=== PATIENT | male | born 2005 | race Caucasian/White ===

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

== ENCOUNTER 2025-04-04 20:17 | Emergency (ER) | payer BC ==
[~2025-04-04] VITALS: Ht 185.4 cm; Wt 60.9 kg
[~2025-04-04 20:17] MED LIST changes: +IBUP-2766 PO; -IBUP100O20 PO
[2025-04-04 20:31] VITALS: TEMP 98.3
--- NOTE | 2025-04-04 20:47 | Physician Documentation ---
History of Present Illness Chief Complaint: Flank Pain Stated Complaint: BACK/ABD PAIN Time Seen by MD: 20:44 Primary Medical Doctor: [facility] HPI This is a 19-year-old gentleman who presents for evaluation of back pain that began several hours prior to arrival without any obvious trigger, trauma provocation while he was watching a TV show. No particular palliating or aggravating factors. If the pain persisted and developed, it wrapped around ventricular his right lower quadrant. No particular palliating or aggravating factors were elicited with the patient. Did not attempt to treat it. This never happened in the past. He does reports some dysuria without any hematuria. Denies any chance of STDs. No trauma. No red flags of back pain such as urinary incontinence, fecal incontinence, saddle paresthesias. No drug use. No concern for tobacco or alcohol use. Medication Reconciliation Allergies: Coded Allergies: amoxicillin trihydrate (Verified Allergy, Unknown, 04/04/25) potassium clavulanate (Verified Allergy, Unknown, 04/04/25) Scheduled Ibuprofen 100MG/5ML Susp* (Motrin 100 MG/5ML Susp.*), 12.5 ML PO Q6H Miscellaneous Medications Home Med List (No Home Medications), (Reported) Past Medical History Past Medical History: No Pertinent History Past Surgical History: no surgical history Alcohol Use: None Drug Use: none Lives with: Mother, Father Lives In: Home Review of Systems ROS 10 point review of systems was performed and unless noted above in HPI is neg ative for acute process/complaint. Physical Exam Vital Signs: Temperature: 98.3, Source: Temporal, Heart Rate: 108, Respiratory Rate: 15, BP: 135/77, Pulse Oximetry: 98, Weight: 60.900 Physical Exam GENERAL: Awake, alert, oriented, GCS 15, no apparent distress, non-toxic appearing, answers questions, follows commands appropriately. Examined in triage, accompanied by mother HEENT: Atraumatic, normocephalic, pupils equal, extraocular muscles intact, sclerae anicteric, mucus membranes moist, oropharynx is clear, no stridor. NECK: supple, full active range of motion, trachea midline, no thyromegaly, no lymphadenopathy, no JVD. CARDIOVASCULAR: regular rate/rhythm, no murmurs/gallops/rubs, Pulses are 2+ in all extremities and symmetric. Capillary refill less than 2 seconds. PULMONARY: Nonlabored, good air movement ,no respiratory distress, speaking in full sentences, clear to auscultation bilaterally, no wheezing, no ronchi, no rales, no accessory muscle use. GASTROINTESTINAL: Soft, right lower quadrant tenderness to palpation reproducing chief complaint,, non-distended, normal active bowel sounds, no organomegaly, no pulsatile masses, no CVA tenderness. NEUROLOGIC: Lucid with normal mental status. Normal facial symmetry. Moves all extremities symmetrically and with purpose. No truncal ataxia. Speech is fluid without evidence of dysarthria or aphasia, no focal deficits appreciated. MUSCULOSKELETAL: There is full range of motion of all extremities. There is no joint pain or joint swelling or joint erythema. There is no muscle pain or tenderness or swelling. EXTREMITIES: warm, well-perfused, no cyanosis, no clubbing, no edema, no acute deformities. Skin: warm, dry, no rashes or lesions, no jaundice, no petechiae orpurpura. No ecchymosis. PSYCHIATRIC: Normal affect, normal insight, normal concentration. Focused exam: [] Progress Results/Orders Results/Orders Orders - CHIN PAGE DO Urinalysis, Cult If Indicated (04/04/25 20:34) Cbc/Diff (04/04/25 20:34) BMP (04/04/25 20:34) Lipase (04/04/25 20:34) CMP (04/04/25 20:34) Vital Signs 04/04/25 20:31 Temp 98.3 Pulse 108 Resp 15 B/P (MAP) 135/77 Pulse Ox 98 Laboratory Tests Test 04/04/25 20:37 Urine Comment Medical Decision Making Findings Facility Status: ED Holds, [facility] process The plan was discussed with the patient, who demonstrates clear understanding of the plan and is in agreement with the plan unless otherwise noted in the chart. All questions have been answered, all concerns were addressed unless otherwise documented. I was available throughout their ED stay for frequent reassessment and questions. Differential Diagnoses (considered and possible or likely): [Differential diagnosis considered includes acute appendicitis, acute cholecystitis, pancreatitis, gastritis, PUD, diverticulitis, mesenteric ischemia, abdominal aortic aneurysm, bowel obstruction, enteritis, colitis, fecal impaction, volvulus, IBS, inflammatory bowel disease, renal colic, specific food intolerance, peritonitis, perforated viscous, malignancy, UTI, abscess, and abdominal pain NOS. History, physical exam, and workup exclude many of the more serious causes listed above. ] ??Differential Diagnoses (considered and unlikely, not requiring evaluation currently): [No evidence of trauma] MDM Data Please see HPI for the following: Independent Historians and external Records Review. Historian: [Patient] Independent Historians: ?[Mother, record review] Medication Management: [Reviewed medication list] Social History and determinants: [Reviewed] Please see the body of the note for the following: Any independent interpretations of ECG, imaging studies. All vitals signs/haemodynamics, ordered tests were independently reviewed and interpreted by myself. Nursing triage complaint and vitals reviewed, additional nursing notes were reviewed as available and I agree unless otherwise noted or documented in contradiction in the chart Vital Signs: Independently reviewed Labs: Independently interpreted Imaging: Independently interpreted Old Medical Records: Independently reviewed, see HPI for relevant summary and information Pulse Oximetry: [100%] interpreted as [normal on room air] by me [Double End Tenoner Operator: [Regular Rate, Regular rhythm, no ectopy, NSR] reviewed and interpreted by me] Additionally notably showing: [Hemodynamics reviewed. The patient initially tac hycardic, that had improved and resolved with fluids. No evidence of hypotension respiratory distress. CBC normal. Metabolic panel notable for slightly elevated glucose, likely dietary arrange. Lipase is normal. UA nondiagnostic for UTI. Advanced imaging was obtained to evaluate for potential appendicitis. On my independent review and interpretation there is no free air, appendix appears to be normal. The radiology official read confirms that there is no acute abnormality.] Tests considered but not ordered include: [Ultrasound has been considerably does not appear to be necessary] Social Determinants of Health Impact: Patient was evaluated in [facility], or [facility] [place] healthcare due to below par ratio of patient to medical providers. [] Comorbid Conditions Impacting Present Evaluation and Care/Treatment: [None] Management Discussions with other Healthcare Providers: [None] Treatment and Disposition Medication Management (Given or considered): [Fluids and pain management]. See EMR for details Consideration for Hospitalization/Escalation/Deescalation of Care: Admission for observation has been considered, [however the patient is able to tolerate p.o., their symptoms are controlled, they are able to rely on oral medications, and their chief complaint/diagnosis can be managed on outpatient basis.] ?ED Course:?[The gentleman did experience syncope during blood draw. Most likely vasovagal event. I do not believe he requires a workup for it. He recovered completely. No seizure-like activity. No altered mental status. No clinical deterioration. No explanation for this gentleman's back pain radiating to the front. Clinically not consistent or concerning for dissection. He has not no risk factors. No surgical intra-abdominal process.] ?Shared decision making:?[Patient is hemodynamically stable for discharge home with follow with their primary care provider. [ ] Specific and cautious return precautions provided and discussed with full understanding. Any incidental findings were also discussed and follow up recommendations given. [] All questions answered. Patient/family were able to verbalize back return precautions. Patient/family agree to plan. Copies of imaging and laboratory studies were provided.] Code status:?FULL Please see the full Electronic Medical Record for full details of nursing documentation, medications list, other records of complete past medical history and conditions, vital signs, laboratory studies, and any radiologic study interpretations by radiologists. Portions of this note were completed using [employer] dictation software and as a result there may exist minor errors in spelling. I have reviewed elements of past family and social history and agree as included in note. Departure Disposition: 01 HOME / SELF CARE / HOMELESS Impression: Primary Impression: Acute back pain Additional Impressions: Right lower quadrant abdominal pain Nausea and vomiting Vasovagal syncope Additional Impression Text There is no explanation for your back pain that radiates into your abdomen. There was no evidence of kidney stones, there is no infection, no appendicitis. Treat your pain with the ibuprofen and Tylenol. Return if it gets worse, return if you develop nausea and vomiting and can not hold down your medications. Condition: Improved Discharge Instructions: Abdominal Pain, Adult, Acute Back Pain, Adult Referrals: NO PRIMARY CARE PROVIDER (PCP) Prescriptions Dicyclomine HCl (Dicyclomine HCl) 20 Mg Tablet 1 TAB PO Q8H PRN for pain for 10 Days, #30 TAB 0 Refills Prov: CHIN PAGE DO 04/05/25 ONDANSETRON ODT 4mg tablet (ONDANSETRON ODT) 4 Mg Tab.rapdis 1 TAB PO Q6H PRN PRN for nausea/vomiting for 4 Days, #16 TAB 0 Refills Prov: CHIN PAGE DO 04/05/25 Education Educated: Patient Educated regarding: diagnosis, treatment, prognosis, need for follow up Signature Scribe Signature: No scribe Attestation: This note accurately reflects clinical decisions, work performed by myself, DO CAMILO Herrera NICHOLAS M DO Apr 04, 2025 20:47
[2025-04-04 20:54] LABS: LEUKOCYTE ESTERASE ,URINE NEGATIVE (Neg); NITRITES, URINE NEGATIVE (Neg); OCCULT BLOOD,URINE NEGATIVE (Neg)
[2025-04-04 20:56] LABS: UA COLLECTION TYPE CLN CATCH MIDSTREAM
[2025-04-04 21:03] LABS: SQUAMOUS EPITHELIAL CELL,UR FEW /LPF (FEW)
[2025-04-04 21:34] LABS: MEAN PLATELET VOLUME 7.4 FL (7.4-10.4); RED CELL DISTRIBUTION WIDTH 12.9 % (11.5-14.5)
[2025-04-04] MEDS: ondansetron/PF 4mg/2ml inj IV ONE (21:48)
[2025-04-04] MEDS: ketorolac trometh 30MG/ML vial 30 MG/ML VIAL IV ONE (21:49)
[2025-04-04 21:50] LABS: CREATININE 0.92 MG/DL (0.60-1.10); TOTAL CARBON DIOXIDE 27.7 MMOL/L (24-32); eCRCL 111 ML/MIN; eGFR > 90 ML/MIN
--- NOTE | 2025-04-04 23:51 | RADIOLOGY REPORT ---
Exam: CT CT ABDOMEN PELVIS W/ IV CONTRAST History: RLQ pain, nausea COMPARISON: None Technique: Multidetector spiral CT of the abdomen and pelvis was performed from lung bases to pubic s ymphysis. Intravenous contrast was administered during this examination. Portal venous imaging was obtained. Axial, coronal and sagittal multiplanar reformats were performed by the technologist on a separate workstation. Radiation Dose : 1. Abdomen/Pelvis: CTDIvol mGy, DLP mGy*cm. CONTRAST: Type of contrast: Contrast injected: ml Contrast ingested: ml Findings: Lung Bases: No abnormality demonstrated. Liver: Normal in size. No focal lesions noted. Normal hepatic vascular enhancement. Gallbladder and Biliary Tree: No abnormality demonstrated. Spleen: No abnormality demonstrated. Pancreas: No abnormality demonstrated. Adrenal Glands: No abnormality demonstrated. Kidneys: No abnormality demonstrated. Bladder: Unremarkable Bowel: Stomach appears grossly unremarkable. No abnormally dilated or thick-walled loops of large or small bowel noted. Appendix appears unremarkable. Ascites: Absent Lymphadenopathy: No evidence of lymphadenopathy. Abdominal Wall and Mesentery: Unremarkable. Vasculature: Unremarkable. Pelvic Organs: Unremarkable Musculoskeletal: No bony lesions or fracture. IMPRESSION: No abnormality demonstrated. Radiation optimization: All CT scans at this facility use at least one of these dose optimization alessandra hniques: automated exposure control mA and/or kV adjustment per patient size (includes targeted exam s where dose is matched to clinical indication) or iterative reconstruction.
[2025-04-05] MEDS ORDERED: ONDA-243 PO (00:28)
[2025-04-05] MEDS ORDERED: DICY20TA17 PO (00:28)
[2025-04-05 01:04] VITALS: BP 100/63; PULSE 78; RESP 18; O2SAT 98
== END 2025-04-05 01:12 | disposition home or self-care (01) ==
LOC: ER 20:17
DX: M54.9 Dorsalgia, unspecified (principal); R10.31 Right lower quadrant pain; R55 Syncope and collapse
CPT/HCPCS: 36415; 74177; 80053; 81001; 83690; 85025; 96374; 96375; 99285; J1885; J2405